=== PATIENT | male | born 1980 | race Caucasian/White ===

== ENCOUNTER 2016-12-18 09:52 | Emergency (ER) | payer OTHER ==
[2016-12-18 09:57] VITALS: BP 132/77; PULSE 90; TEMP 98.8; BMI 33.3
--- NOTE | 2016-12-18 10:17 | PDOC ---
History of Present Illness - General Chief Complaint: Bite Stated Complaint: POSSIBLE TICK BITE Time Seen by Provider: 12/18/16 09:59 History Source: Patient Exam Limitations: No Limitations - History of Present Illness Initial Comments: 12/18/16 12:10 36 yr male with questionable insect bite to right thigh noticed monday afternoon. Pt c/o pain to the area with redness, no fever or chills. 12/18/16 12:20 Past History - Past Medical History Allergies/Adverse Reactions: Allergies Allergy/AdvReac Type Severity Reaction Status Date / Time No Known Allergies Allergy Verified 12/18/16 09:57 Home Medications: Ambulatory Orders Amoxicillin/Potassium Clav [Augmentin 875-125 Tablet] 1 each PO BID #14 tablet 12/18/16 Other medical history: NONE - Psycho/Social/Smoking Cessation Hx Anxiety: No Suicidal Ideation: No Smoking History: Current some day smoker Number of Cigarettes Smoked Daily: 2 Information on smoking cessation initiated: No Hx Alcohol Use: Yes (SOCIAL) Drug/Substance Use Hx: No Substance Use Type: None Review of Systems - Review of Systems Able to Perform ROS?: Yes Is the patient limited Yakut proficient: No Constitutional: No: Symptoms Reported HEENTM: No: Symptoms Reported Respiratory: No: Symptoms reported Cardiac (ROS): No: Symptoms Reported ABD/GI: No: Symptoms Reported : No: Symptoms Reported Musculoskeletal: No: Symptoms Reported Integumentary: Yes: See HPI *Physical Exam - Vital Signs Last Vital Signs Temp Pulse Resp BP Pulse Ox 98.8 F 90 20 132/77 99 12/18/16 09:54 12/18/16 09:54 12/18/16 09:54 12/18/16 09:54 12/18/16 09:54 - Physical Exam General Appearance: Yes: Nourished, Appropriately Dressed HEENT: positive: EOMI, JESSI Neck: negative: Tender Respiratory/Chest: positive: Lungs Clear, Normal Breath Sounds Cardiovascular: positive: Regular Rhythm, Regular Rate Musculoskeletal: positive: Normal Inspection Extremity: positive: Normal Capillary Refill, Normal Inspection, Normal Range of Motion Integumentary: positive: Normal Color, Other (right outer lateral thigh with 2cm area of redness and scabbed center, with fluctuance, no insect noted) Neurologic: positive: Fully Oriented, Alert, Normal Mood/Affect, Normal Response , Motor Strength 5/5 Procedures - Additional Procedures Progress: 12/18/16 12:23 area cleaned with peroxide and betadine, scab removed , small amount of pus expressed. wound cleaned sterile dressing placed. Medical Decision Making - Medical Decision Making 12/18/16 12:25 cc: painful red area , possible insect bite, unknown per pt area cleaned and small amount of pus removed placed on augmentin strict follow up in 48hrs pt is aware of when to return to the ER non toxic with stable vitals 12/18/16 12:26 *DC/Admit/Observation/Transfer Diagnosis at time of Disposition: Bite - Discharge Dispostion Disposition: HOME Condition at time of disposition: Good - Prescriptions Prescriptions: Amoxicillin/Potassium Clav [Augmentin 875-125 Tablet] 1 each PO BID #14 tablet - Referrals Referrals: Ernesto Marquis MD [Primary Care Provider] - - Patient Instructions Additional Instructions: warm moist compresses to the area 3-4 times a day for 10-15 minutes wash with antibacterial soap and water daily take the antibiotics as prescribed follow with your doctor in 48hrs return to ER for any fever, chills worsening redness or pain or any concerns
== END 2016-12-18 10:34 | disposition home or self-care (01) ==
LOC: JERFT 09:52
DX: S70.361A Insect bite (nonvenomous), right thigh, initial encounter (principal); W57.XXXA Bitten or stung by nonvenomous insect and other nonvenomous arthropods, initial encounter; Y93.89 Activity, other specified; Y92.89 Other specified places as the place of occurrence of the external cause
CPT/HCPCS: 99281-25

== ENCOUNTER 2018-02-05 17:30 | Emergency (ER) | payer OTHER ==
[2018-02-05 17:35] VITALS: BP 137/90; PULSE 70; TEMP 98.6; BMI 32.1
--- NOTE | 2018-02-05 18:28 | PDOC ---
History of Present Illness - General Chief Complaint: Wound Stated Complaint: SWOLLEN FINGER Time Seen by Provider: 02/05/18 17:37 History Source: Patient Exam Limitations: No Limitations - History of Present Illness Initial Comments: 02/05/18 18:35 Patient is a 37-year-old male with no past medical history, who presents to the emergency department today for the redness to his left second finger. 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 He states that it is swollen and red. He tried to use a needle to take out a splinter he thought was there, but he does not explicitly remember getting a splinter. States that the finger is tender to the touch. Denies fevers, chills, weakness, numbness and tingling to the extremity. Past History - Travel Traveled outside of the country in the last 30 days: No Close contact w/someone who was outside of country & ill: No - Past Medical History Allergies/Adverse Reactions: Allergies Allergy/AdvReac Type Severity Reaction Status Date / Time No Known Allergies Allergy Verified 02/05/18 17:32 Home Medications: Ambulatory Orders Cephalexin Monohydrate [Keflex -] 500 mg PO BID #14 capsule 02/05/18 Sulfamethoxazole/Trimethoprim [Bactrim Ds -] 1 tab PO BID #14 tablet 02/05/18 COPD: No - Suicide/Smoking/Psychosocial Hx Smoking History: Never smoked Number of Cigarettes Smoked Daily: 2 Information on smoking cessation initiated: No Hx Alcohol Use: Yes (SOCIAL) Drug/Substance Use Hx: No Substance Use Type: None Review of Systems - Review of Systems Able to Perform ROS?: Yes Comments:: 02/05/18 18:22 CONSTITUTIONAL: Absent: fever, chills, diaphoresis, generalized weakness, malaise, loss of appetite HEENT: Absent: rhinorrhea, nasal congestion, throat pain, throat swelling, difficulty swallowing, mouth swelling, ear pain, eye pain, visual Changes MUSCULOSKELETAL: Absent: myalgia, arthralgia, joint swelling SKIN: Present: L second finger redness Absent: rash, itching, pallor HEMATOLOGIC/IMMUNOLOGIC: Absent: easy bleeding, easy bruising, lymphadenopathy, frequent infections ENDOCRINE: Absent: unexplained weight gain, unexplained weight loss, heat intolerance, cold intolerance NEUROLOGIC: Absent: headache, focal weakness or paresthesias, dizziness, unsteady gait, seizure, mental status changes, bladder or bowel incontinence PSYCHIATRIC: Absent: anxiety, depression, suicidal or homicidal ideation, hallucinations. Is the patient limited Azeri proficient: No *Physical Exam - Vital Signs Last Vital Signs Temp Pulse Resp BP Pulse Ox 98.6 F 70 18 137/90 100 02/05/18 17:33 02/05/18 17:33 02/05/18 17:33 02/05/18 17:33 02/05/18 17:33 - Physical Exam Comments: 02/05/18 18:22 GENERAL: Well developed, well nourished. Awake and alert. No acute distress. MUSCULOSKELETAL Normal range of motion at all joints. No bony deformities or tenderness. No CVA tenderness. EXTREMITIES: No cyanosis. No clubbing. No edema. No calf tenderness. SKIN: Between the PIP and DIP of the L finger a 0.5cm round area of redness with a red center. Pt able to flex and extend both the PIP and DIP. Warm and dry. Normal capillary refill. No jaundice. NEUROLOGICAL: Alert, awake, appropriate. Cranial nerves 2-12 intact. No deficits to light touch and temperature in face, upper extremities and lower extremities. No motor deficits in the in face, upper extremities and lower extremities. Normoreflexic in the upper and lower extremities. Normal speech. Toes are down- going bilaterally. Gait is normal without ataxia. PSYCHIATRIC: Cooperative. Good eye contact. Appropriate mood and affect. Medical Decision Making - Medical Decision Making 02/05/18 18:36 Patient is a 37-year-old male with no past medical history, who presents to the emergency department today for the redness to his left second finger. 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 -Exam: warm and redness between the PIP and DIP of the L second finger -Able to flex and extend the L second digit -Finger soaked, expressed purulent material, no forign body noted -pt with abscess/cellulitis to the L second finger -Started on bactrim and keflex. -DC home with strict return precautions. Pt understands all dc instructions and all questions were answered. *DC/Admit/Observation/Transfer Diagnosis at time of Disposition: Cellulitis Qualifiers: Site of cellulitis: extremity Site of cellulitis of extremity: finger Laterality: left Qualified Code(s): L03.012 - Cellulitis of left finger - Discharge Dispostion Disposition: HOME Condition at time of disposition: Stable Decision to Admit order: No - Referrals Referrals: Ernesto Marquis MD [Primary Care Provider] - - Patient Instructions Printed Discharge Instructions: DI for Cellulitis -- Adult Additional Instructions: You have cellulitis. This is a skin infection. Please take the Bactrim and Keflex twice a day for one week. Please take all the antibiotics even if you feel better. You may use warm water soaks to the area. Please do this approximately 4-5 times a day. Please avoid shaving the skin around the area of redness. You may take Tylenol or Motrin as needed for pain.Please follow the dosing instructions on the bottle. Keep the finger covered at work to prevent further infection. Please follow up with your primary care doctor in 1 week. Return to the emergency department if you have worsening redness, fevers, increasing pain, or have any changes in your symptoms. - Post Discharge Activity Forms/Work/School Notes: Back to Work
== END 2018-02-05 18:26 | disposition home or self-care (01) ==
LOC: JERFT 17:30
DX: L03.012 Cellulitis of left finger (principal)
CPT/HCPCS: 99281-25